=== PATIENT | male | born 1965 | race Caucasian/White ===

== ENCOUNTER 2021-04-14 05:29 | Day surgery (SDC) | payer OTHER ==
[~2021-04-14] VITALS: Ht 172.7 cm; Wt 120.5 kg
[2021-04-14] MEDS ORDERED: LISINOPRIL-HCT1 EAC8 PO (06:39)
[2021-04-14] MEDS ORDERED: EZETIMIBE PO (06:39)
[2021-04-14] MEDS ORDERED: [UNRECOGNIZED DRUG - OTHER] PO (06:39)
[2021-04-14 06:51] VITALS: BP 113/69; Ht 172.7 cm; Wt 120.5 kg
[2021-04-14 06:54] LABS: BASOPHILS 0.8 % (0-2); HEMATOCRIT 44.5 % (42.0-54.0); HEMOGLOBIN 14.9 g/dL (13.5-17.5); LYMPHOCYTES 36.6 % (15-50); MCH 28.3 pg (26.0-34.0); MCHC 33.6 g/dL (31.0-37.0); MCV 84.4 fL (80.0-100.0); MEAN PLATELET VOLUME 7.6 fL (7.4-10.4); MONOCYTES 9.8 % (2-11); NEUTROPHILS 51.8 % (40-80); PLATELET COUNT 227 10x3/uL (130-400); RBC 5.28 10x6/uL (4.20-6.10); RDW 13.5 % (11.5-14.5); WBC 4.9 10x3/uL (4.8-10.8)
[2021-04-14 07:06] LABS: CALC OSMOLALITY 284 mosm/kg (275-300); CALCIUM 9.7 mg/dL (8.5-10.1); CARBON DIOXIDE 26.5 mmol/L (21.0-32.0); CHLORIDE - SERUM 103 mmol/L (98-107); GLUCOSE 114 mg/dL (74-106); SODIUM 141 mmol/L (136-145); UREA NITROGEN 20 mg/dL (7-18); eGFR NON AFRICAN AMERICAN 82 mL/min (90-120)
--- NOTE | 2021-04-14 13:34 | NUR ---
1020 CXR DONE AND TOLERATED WELL. UP TO BATHROOM. 1040 IV REMOVED AND INSTRUCTIONS GIVEN.
--- NOTE | 2021-04-15 19:06 | HP ---
PATIENT: KRIS GONZALES MEDICAL RECORD: [id number] ACCOUNT: [id number] LOCATION:[facility] : 61 ADMISSION DATE: 04/14/21 PCP: RAI CHRISTINE MD HISTORY AND PHYSICAL EXAMINATION HISTORY OF PRESENT ILLNESS: The patient has numerous colon polyps. He is to undergo colonoscopy with polypectomies utilizing argon plasma manual plate filler. HOME MEDICATIONS: Reviewed. ALLERGIES: No known drug allergies. PAST MEDICAL AND SURGICAL HISTORY: Sleep apnea, he is on CPAP and hypertension. REVIEW OF SYSTEMS: Negative for CVA or seizures. Negative for diabetes or thyroid problems. PHYSICAL EXAMINATION: GENERAL: The patient does not appear acutely ill. He does not appear chronically ill. VITAL SIGNS: Reviewed. EARS: External ears appear normal. EYES: Extraocular movements are intact. NECK: Trachea is midline. CHEST: No intercostal retractions. PULMONARY: Nonlabored. No stridor. IMPRESSION: Multiple colon polyps. PLAN: The patient will be colonoscopy with polypectomies. TRANSINT:[id number] Voice Confirmation ID: [id number] DOCUMENT ID: [id number] MENDOZA OLEA MD at 1906 CC: ERIC DURÁN and RAI CHRISTINE MD [id number] DICTATION DATE: 04/14/21907 DEPUTY REGISTER OF DEEDS: 04/14/2126 [facility] 04/14/21 [facility] [address] [place] [address]
--- NOTE | 2021-05-15 10:06 | OP ---
PATIENT NAME: KRIS GONZALES MEDICAL RECORD: [id number] :61 LOCATION:D.OPS ADMISSION DATE: SURGEON: YAZAN OLEA MD DATE OF OPERATION: 04/14/2021 PREOPERATIVE DIAGNOSES: 1. Numerous colorectal polyps. 2. History of polypectomy in the cecum. POSTOPERATIVE DIAGNOSES: 1. Numerous colorectal polyps. 2. History of polypectomy in the cecum. 3. Total of 13 colorectal polyps which ranged in size up to 1.2 cm. These were all sessile polyps. 4. Perianal skin lesion, which will require excisional biopsy at a later date. PROCEDURES: 1. Total colonoscopy to cecum. 2. Argon plasma coagulation ablation of 13 colorectal polyps. 3. Retreatment of a stellate scar within the cecum with the argon plasma manager auto. SURGEON: Yazan Olea MD PHYSICS TECHNICIAN: None. BLOOD LOSS: Minimal. ANESTHESIA: IV sedation. POSTOPERATIVE DIAGNOSIS: DESCRIPTION OF PROCEDURE: The patient was conveyed to the GI lab electively on 04/14/2021. IV sedation was induced by the anesthesia staff. A digital rectal examination was performed after the patient was placed in the Gar position. A colonoscope was inserted through the anus. It was easily advanced to the cecum. Upon withdrawal, a stellate scar within the cecum was retreated with the argon plasma manager auto with the right colon sitting in the forced mode. I slowly withdrew the endoscope. A combination of normal imaging and narrow band imaging were utilized. Thirteen colorectal polyps were ablated with the argon plasma manager auto. These were small polyps and I did not think that we needed to biopsy these and sent them to pathology. A combination of normal imaging and narrow band imaging were utilized. The pullback was greater than a 20-minute pullback. A retroflex view was obtained in the rectum. I then unretroflexed the scope and removed it under direct vision. There is a hard lesion in the perianal skin near the anal verge. This will require excisional biopsy in the future. TRANSINT:[id number] Voice Confirmation ID: [id number] DOCUMENT ID: [id number] OPERATIVE REPORT [id number] KRIS GONZALES YAZAN OLEA MD at 1006 CC: [id number] DICTATION DATE: 05/15/21658 [facility] CENTER OPERATOR: 05/15/21817 [facility] 04/14/21 [facility] [address] [place] [address]
== END 2021-04-14 11:00 | disposition home or self-care (01) ==
LOC: D.OPS 05:29
PROVIDERS: ATTEND Surgery
DX: K63.5 Polyp of colon (principal); Z86.010 Personal history of colon polyps; G47.30 Sleep apnea, unspecified; I10 Essential (primary) hypertension; E78.5 Hyperlipidemia, unspecified

== ENCOUNTER 2021-05-03 09:36 | Day surgery (SDC) | payer OTHER ==
[~2021-05-03] VITALS: Ht 172.7 cm; Wt 120.9 kg
[~2021-05-03 09:36] MED LIST: EZETIMIBE PO; LISINOPRIL-HCT1 EAC8 PO; [UNRECOGNIZED DRUG - OTHER] PO
[2021-05-03 09:59] LABS: BASOPHILS 0.7 % (0-2); EOSINOPHILS 1.7 % (0-7); HEMATOCRIT 44.2 % (42.0-54.0); HEMOGLOBIN 14.7 g/dL (13.5-17.5); LYMPHOCYTES 28.4 % (15-50); MCH 28.4 pg (26.0-34.0); MCHC 33.4 g/dL (31.0-37.0); MCV 85.1 fL (80.0-100.0); MEAN PLATELET VOLUME 7.5 fL (7.4-10.4); MONOCYTES 6.7 % (2-11); NEUTROPHILS 62.5 % (40-80); PLATELET COUNT 250 10x3/uL (130-400); RBC 5.19 10x6/uL (4.20-6.10); RDW 13.6 % (11.5-14.5); WBC 5.3 10x3/uL (4.8-10.8)
[2021-05-03 10:07] LABS: CALC OSMOLALITY 283 mosm/kg (275-300); CALCIUM 9.2 mg/dL (8.5-10.1); CARBON DIOXIDE 33.2 mmol/L (21.0-32.0); CHLORIDE - SERUM 103 mmol/L (98-107); GLUCOSE 108 mg/dL (74-106); POTASSIUM - SERUM 4.1 mmol/L (3.5-5.1); SODIUM 141 mmol/L (136-145); UREA NITROGEN 17 mg/dL (7-18); eGFR NON AFRICAN AMERICAN 82 mL/min (90-120)
[2021-05-03 11:00] VITALS: BP 129/73; Ht 172.7 cm; Wt 120.9 kg
--- NOTE | 2021-05-03 19:45 | NUR ---
194 PT VOIDS QS, IV DC'D WITH CATH INTACT. GETTING DRESSED, AWAITING WIFES' RETURN FROM PHARMACY, DC INSTS. GIVEN, VOICED UNDERSTANDING WILL BE RELEASED IN WC.
--- NOTE | 2021-05-03 20:20 | NUR ---
2015 PT'S HAS RETURNED, TO CAR VIA .
--- NOTE | 2021-05-04 12:37 | OP ---
PATIENT NAME: KRIS GONZALES MEDICAL RECORD: [id number] :61 LOCATION:D.OPS ADMISSION DATE: SURGEON: MENDOZA OLEA MD DATE OF OPERATION: 05/03/2021 PREOPERATIVE DIAGNOSES: 1. Perianal mass. 2. Low rectal mass. POSTOPERATIVE DIAGNOSES: 1. Perianal mass. 2. Low rectal mass. PROCEDURES: 1. Transanal excision of low rectal mass. 2. Excisional biopsy of perianal mass with intermediate closure. Dimensions of the excision, including margins, measures 4.0 in the anterior superior dimension and then 2.3 cm in the lateral dimension. SURGEON: Mendoza Olea MD. RESIDENT CAREGIVER: None. BLOOD LOSS: 25 mL. ANESTHESIA: General. COMPLICATIONS: None. The risks, possible complications, and alternatives of the procedure were explained to the patient. He elects to proceed. OPERATIVE COURSE: The patient was conveyed to the operating room electively on 05/03/2021. General anesthesia was induced by the anesthesia staff. The patient was placed in the lithotomy position. The perineum and anus were sterilely prepped and draped. Utilizing lubricated U-shaped anal retractors, I examined the anus and lower rectum. There appeared to be a raised area just cephalad to an internal hemorrhoidal bundle at the 7 o'clock position. I placed a suture in this raised area which appeared to be a sessile polyp. I then pulled this toward the center of the rectum. I then took a Harmonic scalpel and excised the polypoid lesion with a rim of what appeared to be free margin around it. I then created some submucosal flaps. The wound was closed with multiple interrupted horizontal mattress 3-0 Vicryl. Attention was then paid to the perineal lesion, which was about 2 cm from the anal verge. Through the use of double curvilinear incision starting at the anal verge, I excised the mass as well as the surrounding skin and subcutaneous tissue. This was sent to pathology for frozen section, which revealed that it was a benign lesion. Submucosal flaps were created sharply. The subdermis was approximated with interrupted horizontal mattress 0 Vicryl sutures. The skin was approximated with a running intracuticular 3-0 Vicryl. I then injected a combination of Marcaine and steroid into the perianal tissues. Gelfoam was applied within the anus and lower rectum. A topical anesthetic cream was applied to the external hemorrhoids. The patient was then extubated and conveyed to post-anesthesia care unit where OPERATIVE REPORT [id number] CHRISTIANKRIS LUIS he was in stable condition. He is going to be dismissed home on Colace as well as Valium and [place]. I will see him in the office in 2-3 weeks. TRANSINT:[id number] Voice Confirmation ID: [id number] DOCUMENT ID: [id number] MENDOZA OLEA MD at 1237 CC: [id number] DICTATION DATE: 05/03/212215 SPICE BLENDER: 05/04/21 0230 [facility] 05/03/21 [place] [id number] [place] [address]
== END 2021-05-03 20:15 | disposition home or self-care (01) ==
LOC: D.OPS 09:36
PROVIDERS: Anesthesiology; ATTEND Surgery
DX: K62.9 Disease of anus and rectum, unspecified (principal); R19.00 Intra-abdominal and pelvic swelling, mass and lump, unspecified site